=== PATIENT | female | born 1960 | race Caucasian/White ===

== ENCOUNTER 2018-11-20 12:24 | Emergency (ER) | payer OTHER ==
[2018-11-20] MEDS: IBUPROFEN 600 MG TAB PO (13:25)
[2018-11-20 13:43] LABS: ADD UMIC YES; UR ASCORBIC ACID NEGATIVE (NEGATIVE); UR BILIRUBIN (Dip) NEGATIVE (NEGATIVE); UR BLOOD (Dip) 1+ mg/dL (NEGATIVE); UR CLARITY CLEAR (CLEAR); UR COLOR YELLOW (YELLOW); UR GLUCOSE (Dip) NEGATIVE (NEGATIVE); UR KETONES (Dip) NEGATIVE (NEGATIVE); UR LEUKOCYTE ESTERASE (Dip) NEGATIVE Leu/ul (NEGATIVE); UR MUCUS FEW /HPF (NONE SEEN); UR NITRITE (Dip) NEGATIVE (NEGATIVE); UR RBC 5 /HPF (0-5); UR SPECIFIC GRAVITY (Dip) 1.023 (1.003-1.030); UR TOTAL PROTEIN (Dip) NEGATIVE (NEGATIVE); UR UROBILINOGEN (Dip) NEGATIVE (NEGATIVE); UR WBC 1 /HPF (0-5)
[2018-11-20] MEDS: SOD CHLORIDE 0.9% 1,000 ML IV (14:52)
[2018-11-20] MEDS: SOD CHLORIDE 0.9% 100 ML (16:23)
[2018-11-20] MEDS: IOHEXOL 300MG/ML 150 ML BTL (16:23)
== END 2018-11-20 17:20 | disposition home or self-care (01) ==
LOC: FTE 12:24
DX: S20.212A Contusion of left front wall of thorax, initial encounter (principal); S93.402A Sprain of unspecified ligament of left ankle, initial encounter; R16.1 Splenomegaly, not elsewhere classified; W08.XXXA Fall from other furniture, initial encounter; Y92.9 Unspecified place or not applicable
CPT/HCPCS: 71045; 71100; 72072; 72100; 73610; 73630-LT; 74177; 81001; 81025; 96360; 99285-25